=== PATIENT | male | born 1955 | race Caucasian/White ===

== ENCOUNTER 2016-10-28 15:01 | Emergency (ER) | payer MEDICARE, BC ==
[~2016-10-28] VITALS: Ht 165.1 cm; Wt 80.0 kg
[2016-10-28 15:04] VITALS: Ht 165.1 cm; Wt 80.0 kg
[2016-10-28] MEDS ORDERED: HYDROCODONE/APAP (5/325) TAB PO ONE (15:30)
[2016-10-28] MEDS ORDERED: ONDANSETRON 4 MG INJ IV STA (15:39)
[2016-10-28] MEDS ORDERED: morphine 4 MG/ML VIAL IV STA (15:39)
--- NOTE | 2016-10-28 16:03 | RADRPT ---
PROCEDURE: CR left shoulder CLINICAL INDICATION: Shoulder pain TECHNIQUE: 2 views performed COMPARISON: No comparison available. FINDINGS: There is normal mineralization . There is an acute mildly displaced surgical neck fracture with grea ter tuberosity comminution .The glenohumeral and acromioclavicular joints are unremarkable. The soft tissues are unremarkable. IMPRESSION: Acute mildly displaced surgical neck fracture with greater tuberosity comminution. RPTAT: HGDB .Adrian Barney MD, MD Date Time Electronically viewed and signed by .Adrian Barney MD, MD on 10/28/2016 16:02 .B/
--- NOTE | 2016-10-28 17:21 | RADRPT ---
PROCEDURE: XR Elbow. CLINICAL INDICATION: elbow pain s/p fall from ladder TECHNIQUE: AP, lateral and oblique views of the left elbow performed. COMPARISON: None. FINDINGS: There is normal mineralization and alignment. No fracture or osseous lesion is identified. There are normal joints without evidence of arthritis or effusion. The soft tissues are unremarkable. IMPRESSION: Unremarkable examination. .Jorge Perkins MD, MD Date Time Electronically viewed and signed by .Jorge Perkins MD, on 10/28/2016 17:21 .A/
--- NOTE | 2016-10-28 17:21 | RADRPT ---
PROCEDURE: XR Wrist. CLINICAL INDICATION: wrist pain s/p fall from ladder TECHNIQUE: AP, lateral and oblique views of the left wrist were performed. COMPARISON: No prior studies are available for comparison. FINDINGS: No evidence of fracture, dislocation, or subluxation is seen. The bones appear well mineralized. The joint spaces are well preserved. The soft tissues appear intact. IMPRESSION: Unremarkable exam of the left wrist. .Jorge Perkins MD, MD Date Time Electronically viewed and signed by .Jorge Perkins MD, on 10/28/2016 17:21 .A/
[2016-10-28] MEDS ORDERED: HYDR-906 PO (17:44)
[2016-10-28] MEDS ORDERED: IBUP800T25 PO (17:44)
--- NOTE | 2016-10-28 18:09 | ERD ---
ER Documentation Chief Complaint Date/Time DATE: 10/28/16 TIME: 18:01 Chief Complaint fell from ladder, has left shoulder/arm pain/deformity HPI Patient is a 61-year-old male who presents to the ED after a fall from a ladder at 10 AM this morning. Patient states that he was on a 7 foot ladder and fell on his left shoulder. He denies hitting his head, losing consciousness or passing out. He denies neck pain, neck stiffness, or headache. He states that he has pain at his shoulder and elbow. He denies numbness or tingling. Denies chest pain, cough, shortness of breath or difficulty breathing. He has not taken any medications for his symptoms. He states that he is unable to move his left shoulder. Denies fever or chills. No other complaints. ROS All systems reviewed and are negative except as per history of present illness. Medications Home Meds Active Scripts Hydrocodone/Acetaminophen (Whitt 5-325 Tablet) 1 Each Tablet, 1 TAB PO Q6H Y for PAIN, #10 TAB Prov:TETE FISCHER PA-C 10/28/16 Ibuprofen* (Motrin*) 800 Mg Tab, 800 MG PO Q6, #20 TAB Prov:TETE FISCHER PA-C 10/28/16 Allergies Allergies: Coded Allergies: No Known Allergy (Unverified , 11/25/13) PMhx/Soc Medical and Surgical Hx: pt denies Medical Hx, pt denies Surgical Hx History of Surgery: No Anesthesia Reaction: No Hx Neurological Disorder: No Hx Respiratory Disorders: No Hx Cardiac Disorders: No Hx Psychiatric Problems: No Hx Miscellaneous Medical Probl: No Hx Alcohol Use: Yes Hx Substance Use: No Hx Tobacco Use: Yes Smoking Status: Current every day smoker FmHx Family History: No coronary disease, No diabetes, No other Physical Exam Vitals Vital Signs Date Time Temp Pulse Resp B/P Pulse Ox O2 Delivery O2 Flow Rate FiO2 10/28/16 15:04 98.0 85 18 127/81 99 Physical Exam GENERAL: Well-developed, well-nourished male. Appears in mild distress. NECK: Supple. No lymphadenopathy or thyromegaly. No meningismus. negative kernig. negative brudinski. Range of motion intact in all directions. No step- offs or deformities. No cervical spinal tenderness. LUNG: Clear to auscultation bilaterally. No rhonchi, wheezing, rales or coarse breath sounds. HEART: Regular rate and rhythm. No murmurs, rubs or gallops. Extremities: Equal pulses bilaterally. No peripheral clubbing, . No unilateral leg swelling. left shoulder is swollen, ecchymosis and deformed. patient cannot move shoulder and has placed arm in a 90 degree fashion. tenderness throughout shoulder and proximal humerus. slight tenderness in elbow and wrist. no ecchymosis, stepoffs or deformities below mid humeral shaft. rom in tact in elbow and wrist. neurovascular intact. radius, ulnar, median nerve intact bilaterally. no snuffbox tenderness. sensation intact bilaterally. NEUROLOGIC: Alert and oriented. moving all extremities except left shoulder.Normal speech. Steady gait. SKIN: Normal color. Warm and dry. No rashes or lesions. Capillary refill < 2 seconds Results 24 hrs Current Medications Medications (Trade) Dose Ordered Sig/Bree Route PRN Reason Start Time Stop Time Status Last Admin Dose Admin Acetaminophen/ Hydrocodone Bitart (Whitt (5/325)) 1 tab ONCE ONCE PO 10/28/16 15:30 10/28/16 15:31 DC 10/28/16 15:21 Morphine Sulfate (morphine) 4 mg ONCE STAT IV 10/28/16 15:39 10/28/16 15:40 DC 10/28/16 16:05 Ondansetron HCl (Zofran Inj) 4 mg ONCE STAT IV 10/28/16 15:39 10/28/16 15:40 DC 10/28/16 16:05 Procedures/MDM ER COURSE: I kept the patient and/or family informed of laboratory and diagnostic imaging results throughout the emergency room course. IMAGING STUDIES [place] [address] Radiology Main Line: [phone] DIAGNOSTIC IMAGING REPORT Patient: LUIS PAYAN : 1955 Age: 61 Sex: M MR #: [id number] DOS: 10/28/16 [facility] Ordering MD: TETE FISCHER PA-C Location: [facility] Room/Bed: PROCEDURE: XR Elbow. CLINICAL INDICATION: elbow pain s/p fall from ladder TECHNIQUE: AP, lateral and oblique views of the left elbow performed. COMPARISON: None. FINDINGS: There is normal mineralization and alignment. No fracture or osseous lesion is identified. There are normal joints without evidence of arthritis or effusion. The soft tissues are unremarkable. IMPRESSION: Unremarkable examination. .Jorge Perkins MD, MD Date Time Electronically viewed and signed by .Jorge Perkins MD, MD on 10/28/2016 17: 21 .A/ CC: TETE FISCHER PA-C [place] [address] Radiology Main Line: [phone] DIAGNOSTIC IMAGING REPORT Patient: LUIS PAYAN : 1955 Age: 61 Sex: M MR #: [id number] DOS: 10/28/16 1514 Ordering MD: TETE FISCHER PA-C Location: [facility] Room/Bed: PROCEDURE: CR left shoulder CLINICAL INDICATION: Shoulder pain TECHNIQUE: 2 views performed COMPARISON: No comparison available. FINDINGS: There is normal mineralization . There is an acute mildly displaced surgical neck fracture with greater tuberosity comminution .The glenohumeral and acromioclavicular joints are unremarkable. The soft tissues are unremarkable. IMPRESSION: Acute mildly displaced surgical neck fracture with greater tuberosity comminution. RPTAT: HGDB .dArian Barney MD, MD Date Time Electronically viewed and signed by .Adrian Barney MD, MD on 10/28/2016 16:02 .B/ CC: TETE FISCHER PA-C [place] [address] Radiology Main Line: [phone] DIAGNOSTIC IMAGING REPORT Patient: LUIS PAYAN : 1955 Age: 61 Sex: M [id number] DOS: 10/28/16 1514 Ordering MD: TETE FISCHER PA-C Location: [facility] Room/Bed: PROCEDURE: XR Wrist. CLINICAL INDICATION: wrist pain s/p fall from ladder TECHNIQUE: AP, lateral and oblique views of the left wrist were performed. COMPARISON: No prior studies are available for comparison. FINDINGS: No evidence of fracture, dislocation, or subluxation is seen. The bones appear well mineralized. The joint spaces are well preserved. The soft tissues appear intact. IMPRESSION: Unremarkable exam of the left wrist. .Jorge Perkins MD, Date Time Electronically viewed and signed by .Jorge Perkins MD, on 10/28/2016 17: 21 .A/ CC: TETE FISCHER PA-C MEDICATIONS Morphine, Whitt. Tolerated well with no adverse reaction. He stated improvement in symptoms. ED sling. Neurovascularly intact post placement. MEDICAL DECISION MAKING: This is a 61 year old male who presents with left shoulder pain after sustaining a fall from a ladder. Vital signs were reviewed. Patient is afebrile. Patient is not hypoxic. Patient is not toxic or ill-appearing. Xray of elbow and wrist are unremarkable.Xray of shoulder as read by radiologist shows a Acute mildly displaced surgical neck fracture with greater tuberosity comminution. I consulted with Dr. Soriano regarding this patient who came to examine patient at bedside and agrees with plan. Dr. Reynoso who is orthopedic automation application engineer. I discussed case with patient and patient can be seen outpatiently treated on 10/30/16. Patient will be placed in a sling, given pain medication and advised to ice the area. Low suspicion for septic joint, compartment syndrome, osteomyelitis, cellulitis, avascular necrosis, neurological injury, vascular injury, tendon laceration. I reexamined patient after sling was placed, patient is neurovasculary intact post sling placement. Radial, ulnar and median nerve intact. moving elbow and wrist. No wrist drop and sensation is intact bilaterlaly as well. DISCHARGE: At this time, patient is stable for discharge and outpatient management with no new complaints during the ER course. Patient was sent home with CD and copy of report, pain medication and name, number and address of orthopedic surgeon automation application engineer to follow on Sunday. I explained plan in [place] and patient, as patient's spoke [place]ese and Israeli. Patient and both understood plan and will manage pain with pain medicine, ice the area and follow up with orthopedics on sunday. Patient will be discharged home with instructions to recheck for new or worsening symptoms such as fever, nausea, weakness, LOC and to follow up with primary care in the next 1-2 days. Patient was advised to return to the ER for any new or worsening symptoms. Plan was discussed and patient and/or family understands and agrees. Home instructions were given. Departure Diagnosis: Primary Impression: Humeral surgical neck fracture Encounter type: initial encounter Fracture type: closed Fracture morphology : unspecified fracture morphology Fracture alignment: displaced Laterality: left Qualified Code: S42.212A - Closed displaced fracture of surgical neck of left humerus, unspecified fracture morphology, initial encounter Condition: Stable Patient Instructions: Fracture, Upper Extremity Referrals: MILAGROS REYNOSO MD, [place] SOO MD MOURADIAN, WILLIAM H MD Additional Instructions: Call your primary care doctor TOMORROW for an appointment during the next 1-2 days.See the doctor sooner or return here if your condition worsens before your appointment time. Follow up with orthopedics (bone doctor) Dr Reynoso on Sunday10/30/16 TETE FISCHER PA-C Oct 28, 2016 18:09
== END 2016-10-28 18:12 | disposition home or self-care (01) ==
LOC: FTE 15:01
DX: S42.212A Unspecified displaced fracture of surgical neck of left humerus, initial encounter for closed fracture (principal); F17.210 Nicotine dependence, cigarettes, uncomplicated; W11.XXXA Fall on and from ladder, initial encounter; Y92.9 Unspecified place or not applicable
CPT/HCPCS: 73030; 73080; 73110; 96374; 96375; 99284; J2270; J2405